=== PATIENT | male | born 1955 | race Caucasian/White ===

== ENCOUNTER 2017-02-20 20:23 | Emergency (ER) | payer OTHER ==
[~2017-02-20 20:23] MED LIST: ALBUTEROL HFA6.7 GM IH; ALBUTEROL HFA6.7 GM INH; ALBUTEROL S3 ML/VIAL IH; ALBUTEROL S3 ML/VIAL INH; ALBUTEROL S3 ML/VIAL NEB; ASPIRIN EC81 MG PO; B-1100 MG PO; B-121000 MCG PO; CARAFATE1 GM PO; CLARITIN10 MG PO; COMBIVENT RESPIM4 GM IH; CREON DR 24,001 EACH PO; DAILY VITE1 EACH PO; FOLIC ACID1 MG PO; KLONOPIN0.5 MG PO; LEVAQUIN750 MG PO; LEVOFLOXACIN750 MG PO; LIPITOR80 MG PO; LORTAB 5-325 M1 EACH PO; LORTAB 7.5-3251 EACH PO; METOCLOPRAMIDE10 MG PO; ONCE DAILY1 EACH PO; PEPCID20 MG PO; PLAVIX75 MG PO; PRILOSEC20 M1 PO; PROAIR HFA8.5 GM IH; PROTONIX40 MG PO; SYMBICORT 16010.2 GM IH; SYMBICORT 16010.2 GM INH; SYNTHROID50 MCG PO; THIAMINE HCL100 MG PO; TRAZODONE HCL50 MG PO; TYLENOL325 MG PO; VITAMIN B-121000 MCG PO; ZOFRAN4 MG PO; ZOFRAN8 MG PO
== END 2017-02-20 23:36 | disposition short-term general hospital (02) ==
LOC: ER 20:23
DX: S02.19XA Other fracture of base of skull, initial encounter for closed fracture (principal); S06.6X9A Traumatic subarachnoid hemorrhage with loss of consciousness of unspecified duration, initial encounter; S30.0XXA Contusion of lower back and pelvis, initial encounter; F10.20 Alcohol dependence, uncomplicated; I10 Essential (primary) hypertension; J44.9 Chronic obstructive pulmonary disease, unspecified; F17.210 Nicotine dependence, cigarettes, uncomplicated; Z88.0 Allergy status to penicillin; X58.XXXA Exposure to other specified factors, initial encounter
CPT/HCPCS: 36415; 96361; 96374